=== PATIENT | male | born 1945 | race American Indian/Alaskan Native ===

== ENCOUNTER 2022-06-24 11:09 | Outpatient (CLI) | payer OTHER ==
--- NOTE | 2022-06-24 13:22 | Mammography Report ---
BILATERAL DIGITAL DIAGNOSTIC MAMMOGRAM CONVENTIONAL, 06/24/2022 LEFT LIMITED BREAST ULTRASOUND CLINICAL INFORMATION / INDICATION: Patient presents for evaluation of focal pain in the left breast, and a rash of the right breast. TECHNIQUE: Digital bilateral mammographic imaging was performed. Limited ultrasound was performed. COMPARISON: None FINDINGS: Breast Density: There are scattered areas of fibroglandular density. MAMMOGRAPHIC FINDINGS: No dominant mass, suspicious calcifications, or architectural distortion in ei ther breast. There is moderate asymmetric fibroglandular tissue in the anterior subareolar left breas t, most compatible with asymmetric gynecomastia. Targeted ultrasound was performed for confirmation. ULTRASOUND FINDINGS: Targeted ultrasound evaluation was performed of the area of interest. Targeted ultrasound of the subareolar left breast reveals heterogeneous fibroglandular tissue, compatible wit h gynecomastia as seen mammographically. No suspicious sonographic abnormality identified. IMPRESSION: 1. There is moderate asymmetric left gynecomastia which likely accounts for reported left breast pain . Recommend clinical correlation for potential underlying etiology. 2. There is no mammographic abnormality to account for the reported right breast rash, therefore clin ical correlation is recommended. Follow up recommendation: Clinical exam BI-RADS Category 2: BENIGN. A "normal" or negative report should not discourage follow up or biopsy of a clinically significant f inding. A written summary of these findings will be mailed to the patient. The patient will be entered into a mammography reporting system which will generate a reminder letter for the patient's next appointmen t at the appropriate interval. According to the [employer], yearly mammograms are recommended starting at age 40 and continuing as long as a woman is in good health. Breast MRI is recommended for women with an malorie roximately 20-25% or greater lifetime risk of breast cancer, including women with a strong family his tory of breast or ovarian cancer and women who have been treated for Hodgkin's disease. Signer Name: Marilu Logan MD Signed: 06/24/2022 1:17 PM Workstation Name: [id number]
== END 2022-06-24 11:10 | disposition home or self-care (01) ==
LOC: MAMMO 11:09
PROVIDERS: ATTEND Internal Medicine
DX: N62 Hypertrophy of breast (principal); N64.89 Other specified disorders of breast; N64.4 Mastodynia
CPT/HCPCS: 77066